=== PATIENT | female | born 2000 | race Caucasian/White ===

== ENCOUNTER → 2021-06-05 | Outpatient (CLI) | payer BC ==
[~2021-06-05] VITALS: Ht 162.6 cm; Wt 63.5 kg
== END ==
LOC: OPSV 07:00
DX: D50.9 Iron deficiency anemia, unspecified (principal); R55 Syncope and collapse; R06.02 Shortness of breath; R42 Dizziness and giddiness
CPT/HCPCS: 96365; J1756

== ENCOUNTER → 2021-06-08 | Outpatient (CLI) | payer BC ==
[~2021-06-08] VITALS: Ht 162.6 cm; Wt 63.5 kg
== END ==
LOC: OPSV 06:56
DX: D50.9 Iron deficiency anemia, unspecified (principal); R55 Syncope and collapse; R06.02 Shortness of breath; R42 Dizziness and giddiness
CPT/HCPCS: 96365; J1756

== ENCOUNTER → 2021-06-10 | Outpatient (CLI) | payer BC ==
[~2021-06-10] VITALS: Ht 162.6 cm; Wt 63.5 kg
== END ==
LOC: OPSV 06:54
DX: D50.9 Iron deficiency anemia, unspecified (principal); R42 Dizziness and giddiness; R06.02 Shortness of breath; R55 Syncope and collapse
CPT/HCPCS: 96365; J1756

== ENCOUNTER → 2021-06-12 | Outpatient (CLI) | payer BC ==
[~2021-06-12] VITALS: Ht 162.6 cm; Wt 63.5 kg
== END ==
LOC: OPSV 06:53
DX: D50.9 Iron deficiency anemia, unspecified (principal); R55 Syncope and collapse; R06.02 Shortness of breath; R42 Dizziness and giddiness
CPT/HCPCS: 96365; J1756

== ENCOUNTER → 2021-06-22 | Outpatient (CLI) | payer BC ==
[~2021-06-22] VITALS: Ht 162.6 cm; Wt 63.5 kg
== END ==
LOC: OPSV 07:00
DX: R42 Dizziness and giddiness (principal); D50.9 Iron deficiency anemia, unspecified; R06.02 Shortness of breath; R55 Syncope and collapse
CPT/HCPCS: 96365; J1756

== ENCOUNTER → 2021-11-19 | Outpatient (CLI) | payer BC ==
[2021-11-19 09:15] LABS: HEMOGLOBIN 12.7 gm/dl (12.3-15.3); RED BLOOD COUNT 4.14 M/UL (4.00-5.10); WHITE BLOOD COUNT 3.9 K/UL (4.5-11.0)
[2021-11-22 18:10] LABS: QUANTIFERON MITOGEN VALUE >10.00 IU/mL (.); QUANTIFERON NIL VALUE 0.05 IU/mL (.); QUANTIFERON TB1 AG VALUE 0.06 IU/mL (.); QUANTIFERON TB2 AG VALUE 0.05 IU/mL (.); QUANTIFERON-TB GOLD PLUS Negative (Negative)
== END ==
LOC: LAB 07:48
PROVIDERS: Nurse Practitioner Family
DX: Z11.1 Encounter for screening for respiratory tuberculosis (principal); D50.9 Iron deficiency anemia, unspecified
CPT/HCPCS: 36415; 82728; 85025